=== PATIENT | male | born 1950 | race Caucasian/White ===

== ENCOUNTER 2017-12-04 05:06 | Emergency (ER) | payer SELFPAY ==
[~2017-12-04] VITALS: Ht 172.7 cm; Wt 87.1 kg
[~2017-12-04 05:06] MED LIST: AMOXICILLIN500 M1 PO; BUSPAR5 MG PO; LAC PO; LEVAQUIN250 MG PO; NORCO1 TA2 PO
[2017-12-04 05:11] VITALS: Ht 172.7 cm; Wt 87.1 kg
[2017-12-04 07:01] LABS: BASOPHIL % 0.7 % (0-2); PLATELET COUNT 196 x10^3mcL (130-400); RED CELL DISTRIBUTION WIDTH 12.9 % (11.5-14.5)
[2017-12-04 07:14] LABS: CALCIUM 10.4 mg/dL (8.5-10.1); CHLORIDE SERUM 109 mmol/L (98-107); CREATININE SERUM 1.2 mg/dL (0.7-1.3); GFR1 > 60 mL/min; GLUCOSE SERUM 165 mg/dL (74-106); POTASSIUM SERUM 4.7 mmol/L (3.5-5.1); SODIUM SERUM 141 mmol/L (136-145)
[2017-12-04 07:19] LABS: ALKALINE PHOSPHATASE 157 U/L (46-116); ALT/SGPT 31 U/L (16-63); AST/SGOT 19 U/L (15-37); BILIRUBIN TOTAL 0.37 mg/dL (0.20-1.00); LIPASE 238 IU/L (73-393); TOTAL PROTEIN, SERUM 6.8 g/dL (6.4-8.2)
[2017-12-04 07:21] LABS: ALBUMIN 3.3 g/dL (3.4-5.0)
[2017-12-04] MEDS ORDERED: IBUPROFEN400 MG PO (07:55)
[2017-12-04] MEDS ORDERED: AZITHROMYCIN250 M1 PO (07:56)
[2017-12-04 09:22] VITALS: BP 131/93
== END 2017-12-04 09:10 | disposition home or self-care (01) ==
LOC: ED 05:06 → EDBD 05:06 → ED 09:10
PROVIDERS: Emergency Medicine
DX: K80.20 Calculus of gallbladder without cholecystitis without obstruction (principal); K29.70 Gastritis, unspecified, without bleeding; E78.00 Pure hypercholesterolemia, unspecified; Z88.6 Allergy status to analgesic agent
CPT/HCPCS: 36415; Q0092; Q0162

== ENCOUNTER 2018-01-29 19:37 | Inpatient (IN) | payer MEDICAID ==
[~2018-01-29] VITALS: Ht 172.7 cm; Wt 77.0 kg
[~2018-01-29 19:37] MED LIST changes: +AZITHROMYCIN250 M1 PO; +IBUPROFEN400 MG PO
[2018-01-29 19:53] VITALS: Ht 172.7 cm; Wt 77.0 kg
[2018-01-29 21:31] LABS: BASOPHIL % 0.4 % (0-2); PLATELET COUNT 189 x10^3mcL (130-400); RED CELL DISTRIBUTION WIDTH 12.5 % (11.5-14.5)
[2018-01-29 21:40] LABS: CALCIUM 9.8 mg/dL (8.5-10.1); CARBON DIOXIDE 28.3 mmol/L (21-32); CHLORIDE SERUM 108 mmol/L (98-107); CREATININE SERUM 1.1 mg/dL (0.7-1.3); GFR1 > 60 mL/min; GLUCOSE SERUM 99 mg/dL (74-106); POTASSIUM SERUM 3.8 mmol/L (3.5-5.1); SODIUM SERUM 139 mmol/L (136-145)
[2018-01-29 21:45] LABS: ALKALINE PHOSPHATASE 146 U/L (46-116); ALT/SGPT 28 U/L (16-63); AST/SGOT 22 U/L (15-37); BILIRUBIN TOTAL 0.51 mg/dL (0.20-1.00); LIPASE 123 IU/L (73-393); TOTAL PROTEIN, SERUM 6.4 g/dL (6.4-8.2)
[2018-01-29 21:57] LABS: ALBUMIN 3.2 g/dL (3.4-5.0)
[2018-01-30 00:40] LABS: CHOLESTEROL/HDL RATIO 4.2; MAGNESIUM 2.1 mg/dL (1.8-2.4); PHOSPHOROUS 2.6 mg/dL (2.5-4.9)
[2018-01-30 00:49] LABS: T3 TOTAL 1.22 ng/mL
[2018-01-30 00:55] VITALS: BP 145/84
[2018-01-30 01:01] LABS: FREE T4 0.95 ng/dL (0.76-1.46); FREE THYROXINE INDEX 2.9 ug/dL (1.4-4.5); T4(THYROXINE) 8.2 ug/dL (4.7-13.3)
[2018-01-30 05:18] VITALS: BP 105/68
[2018-01-30 05:34] LABS: BASOPHIL % 0.5 % (0-2); PLATELET COUNT 168 x10^3mcL (130-400); RED CELL DISTRIBUTION WIDTH 12.7 % (11.5-14.5)
[2018-01-30 05:54] LABS: CALCIUM 9.6 mg/dL (8.5-10.1); CHLORIDE SERUM 110 mmol/L (98-107); CREATININE SERUM 1.1 mg/dL (0.7-1.3); GFR1 > 60 mL/min; GLUCOSE SERUM 112 mg/dL (74-106); PHOSPHOROUS 2.2 mg/dL (2.5-4.9); POTASSIUM SERUM 4.5 mmol/L (3.5-5.1); SODIUM SERUM 137 mmol/L (136-145)
[2018-01-30 07:06] LABS: microscopic required? NO
[2018-01-30 08:04] LABS: urine erythrocyte NEGATIVE (NEGATIVE)
[2018-01-30 08:16] LABS: AMPHETAMINE QUAL UR NONE DETECTED (NEG <=1000)
[2018-01-30 09:03] VITALS: BP 100/66
[2018-01-30 12:58] VITALS: BP 111/80
[2018-01-30 17:44] VITALS: BP 116/77
[2018-01-30 20:16] VITALS: BP 114/74
[2018-01-31 05:47] VITALS: BP 100/60
[2018-01-31 06:11] LABS: BASOPHIL % 0.4 % (0-2); PLATELET COUNT 177 x10^3mcL (130-400); RED CELL DISTRIBUTION WIDTH 12.6 % (11.5-14.5)
[2018-01-31 06:24] LABS: CALCIUM 10.1 mg/dL (8.5-10.1); CHLORIDE SERUM 114 mmol/L (98-107); CREATININE SERUM 1.2 mg/dL (0.7-1.3); GFR1 > 60 mL/min; GLUCOSE SERUM 135 mg/dL (74-106); MAGNESIUM 2.1 mg/dL (1.8-2.4); PHOSPHOROUS 2.3 mg/dL (2.5-4.9); POTASSIUM SERUM 4.4 mmol/L (3.5-5.1); SODIUM SERUM 146 mmol/L (136-145)
[2018-01-31 08:16] VITALS: BP 108/72
[2018-01-31 09:32] VITALS: BP 124/77
[2018-01-31] MEDS ORDERED: GOOD SENSE OMEP20 MG PO (09:36)
[2018-01-31] MEDS ORDERED: METAMUCIL0.52 GM PO (11:12)
[2018-01-31 11:18] VITALS: BP 124/77
[2018-01-31 12:56] VITALS: BP 103/66
== END 2018-01-31 14:38 | disposition home or self-care (01) | DRG 254 ==
LOC: ED 19:37 → DU 01-30 00:02
PROVIDERS: Emergency Medicine; Family Medicine; Internal Medicine Gastroenterology
PROC: 0DJD8ZZ Inspection of Lower Intestinal Tract, Via Natural or Artificial Opening Endoscopic (ICD-10-PCS; principal; 2018-01-31 09:00)
DX: K64.8 Other hemorrhoids (principal); E44.0 Moderate protein-calorie malnutrition; E87.0 Hyperosmolality and hypernatremia; E87.8 Other disorders of electrolyte and fluid balance, not elsewhere classified; E83.39 Other disorders of phosphorus metabolism; K80.20 Calculus of gallbladder without cholecystitis without obstruction; E78.00 Pure hypercholesterolemia, unspecified; N40.0 Benign prostatic hyperplasia without lower urinary tract symptoms; Z83.3 Family history of diabetes mellitus; Z88.8 Allergy status to other drugs, medicaments and biological substances; Z68.27 Body mass index [BMI] 27.0-27.9, adult
CPT/HCPCS: 45378; 82962; 83880; 84439; 87046; 87046-59; C9113; J1200; J1610; J2250; J2270; J2310; J2405; J3010; J3490; J7030; J7042; Q0092